=== PATIENT | male | born 1990 | race African-American/Black ===

== ENCOUNTER 2022-06-06 22:04 | Emergency (ER) | payer OTHER ==
[2022-06-06 23:20] LABS: HEMOGLOBIN 17.5 gm/dl (14.0-17.5); RED BLOOD COUNT 5.3 M/UL (4.20-5.50); WHITE BLOOD COUNT 8.9 K/UL (4.5-11.0)
[2022-06-06 23:37] LABS: BUN/CREATININE RATIO 11 (0-10)
== END 2022-06-07 03:43 ==
LOC: ER1 22:04
PROVIDERS: Physician Assistant Medical
DX: R07.9 Chest pain, unspecified (principal)
CPT/HCPCS: 71045; 80053; 82550; 82553; 84484; 85025; 93005; 99285